=== PATIENT | female | born 1960 | race Caucasian/White ===

== ENCOUNTER 2018-11-16 12:08 | Inpatient (IN) | payer MEDICAID, OTHER ==
[~2018-11-16] VITALS: Ht 177.8 cm; Wt 65.8 kg
[~2018-11-16 12:08] MED LIST: ACET-1757 PO; LISI-466 PO; LISI40TA PO
[2018-11-16] MEDS ORDERED: SODIUM CHLORIDE FLUSH 10ML SYR IVF ONE (12:30)
[2018-11-16 12:50] LABS: BASOPHILS # (AUTO) 0.12 x10^3/uL (0-0.1); BASOPHILS % (AUTO) 1 % (0-1); EOSINOPHILS # (AUTO) 0.03 x10^3/uL (0-0.4); EOSINOPHILS % (AUTO) 0 % (1-7); LYMPHOCYTES % (AUTO) 30 % (22-44); MD NO; MEAN CORPUSCULAR HEMOGLOBIN 31.3 pg (27.0-34.8); MEAN CORPUSCULAR HGB CONC 33.6 g/dL (32.4-35.8); MEAN CORPUSCULAR VOLUME 93.1 fL (80-100); MEAN PLATELET VOLUME 8.9 fL (7.4-10.4); MONOCYTES # (AUTO) 0.62 x10^3/uL (0.2-0.8); MONOCYTES % (AUTO) 7 % (2-9); NEUTROPHILS # (AUTO) 5.62 x10^3/uL (1.8-6.8); NEUTROPHILS % (AUTO) 62 % (42-75); PLATELET COUNT 227 x10^3/uL (130-400); RED BLOOD COUNT 5.46 x10^6/uL (3.82-5.3); RED CELL DISTRIBUTION WIDTH 14.4 % (9.6-15.2)
[2018-11-16 12:59] LABS: ALBUMIN 4.2 g/dL (3.4-5.0); ANION GAP 9 mmol/L (5-15); CALCIUM 9.4 mg/dL (8.5-10.1); CHLORIDE 110 mmol/L (98-107)
[2018-11-16 13:04] LABS: CREATININE 0.77 mg/dL (0.55-1.02); TROPONIN I < 0.015 ng/mL (0.000-0.045)
--- NOTE | 2018-11-16 13:24 | NUR ---
PT RESTING ON GURNEY. PT STATES SHE IS UNABLE TO URINATE FOR SAMPLE. STATES SHE IS OK FOR STRAIGHT CATH IF NEEDED. WILL ADVISE MD. PALACIOS.
--- NOTE | 2018-11-16 13:50 | NUR ---
TASK RN: PT RESTING IN BED AT THIS TIME. UNABLE TO PROVIDE UA, PT REPORTS SHE IS STILL UNABLE TO PROVIDE UA AT THIS TIME.
[2018-11-16 14:57] LABS: MICROSCOPIC NOT IND
[2018-11-16 15:01] LABS: CULTURE INDICATED? NO
[2018-11-16] MEDS: NICOTINE 14MG/24 HR PATCH.TD24 TD SCH (16:30)
[2018-11-16] MEDS ORDERED: ONDANSETRON ODT 4 MG PO PRN (16:30)
[2018-11-16] MEDS ORDERED: ONDANSETRON 2MG/ML, 2ML IVPush PRN (16:30)
--- NOTE | 2018-11-16 16:50 | NUR ---
PT YELLING FOR HELP. THIS RN TO BEDSIDE. PT YELLING "I CAN'T BREATHE, I CAN'T BREATHE." PT STATES SHE HAS CHEST PRESSURE. STATES THIS JUST STARTED. EKG AT BEDSIDE COMPLETE. VSS. TELEPSYCH NEURO CONSULT. WILL UPDATE ADMITTING MD ON PT STATUS.
--- NOTE | 2018-11-16 17:35 | NUR ---
PT NOW CALM, VSS. DENIES ANY MORE CHEST PRESSURE AND SOB. RESTING ON GURNEY. PROVIDED WITH SNACK.
--- NOTE | 2018-11-16 19:07 | NUR ---
SBAR REPORT TO MELISSA SCHMIDT
--- NOTE | 2018-11-16 19:15 | NUR ---
PT RESTING WITH NO NEEDS AT THIS TIME. CALL LIGHT IN REACH
--- NOTE | 2018-11-16 20:15 | NUR ---
REPORT TO TARAH TORRES
[2018-11-16] MEDS: SODIUM CHLORIDE 0.9% 1,000 ML IV SCH (21:44)
[2018-11-16] MEDS: ENOXAPARIN 40 MG/0.4 ML SQ SCH (21:44)
[2018-11-16 21:52] VITALS: BP 122/80
[2018-11-16] MEDS: DIPHENHYDRAMINE 50 MG CAPSULE PO PRN (22:29)
[2018-11-17 03:50] VITALS: BP 126/77
[2018-11-17 05:34] LABS: ANION GAP 6 mmol/L (5-15); CALCIUM 9.2 mg/dL (8.5-10.1); CHLORIDE 111 mmol/L (98-107); CREATININE 1.06 mg/dL (0.55-1.02)
[2018-11-17 05:37] LABS: BASOPHILS # (AUTO) 0.03 x10^3/uL (0-0.1); BASOPHILS % (AUTO) 0 % (0-1); EOSINOPHILS % (AUTO) 0 % (1-7); LYMPHOCYTES # (AUTO) 1.31 x10^3/uL (1-3.4); LYMPHOCYTES % (AUTO) 16 % (22-44); MD NO; MEAN CORPUSCULAR HEMOGLOBIN 31.2 pg (27.0-34.8); MEAN CORPUSCULAR HGB CONC 33.3 g/dL (32.4-35.8); MEAN CORPUSCULAR VOLUME 93.7 fL (80-100); MONOCYTES # (AUTO) 0.03 x10^3/uL (0.2-0.8); MONOCYTES % (AUTO) 0 % (2-9); NEUTROPHILS # (AUTO) 6.94 x10^3/uL (1.8-6.8); NEUTROPHILS % (AUTO) 84 % (42-75); PLATELET COUNT 216 x10^3/uL (130-400); RED BLOOD COUNT 5.29 x10^6/uL (3.82-5.3); RED CELL DISTRIBUTION WIDTH 14.3 % (9.6-15.2)
[2018-11-17 07:09] VITALS: BP 120/62
[2018-11-17] MEDS: SODIUM CHLORIDE 0.9% 1,000 ML IV SCH (09:02)
[2018-11-17] MEDS: SENNA/DOCUSATE TABLET PO SCH (10:07)
[2018-11-17] MEDS ORDERED: LIDOCAINE-MPF 1%, 5ML ONE ×2 (12:07)
[2018-11-17 13:26] VITALS: BP 121/66
[2018-11-17 13:52] LABS: GLUCOSE, CSF 78 mg/dL (40-80); TOTAL PROTEIN,CSF 38 mg/dL (15-45)
[2018-11-17 15:43] LABS: % IRON SATURATION 30 % (20-55); IRON LEVEL 87 mcg/dL (50-170); TOTAL IRON BINDING CAPACITY 293 mcg/dL (250-450)
[2018-11-17] MEDS: NICOTINE 14MG/24 HR PATCH.TD24 TD SCH (16:30)
[2018-11-17] MEDS: ENOXAPARIN 40 MG/0.4 ML SQ SCH (17:30)
[2018-11-17 19:31] VITALS: BP 119/65
[2018-11-17] MEDS: DIPHENHYDRAMINE 50 MG CAPSULE PO PRN (20:15)
[2018-11-17] MEDS: ACETAMINOPHEN 325 MG TABLET PO PRN (20:19)
[2018-11-18] MEDS: SODIUM CHLORIDE 0.9% 1,000 ML IV SCH ×2 (04:51→22:40)
[2018-11-18 07:55] VITALS: BP 134/74
[2018-11-18] MEDS: SENNA/DOCUSATE TABLET PO SCH (08:00)
[2018-11-18] MEDS: ENOXAPARIN 40 MG/0.4 ML SQ SCH (08:01)
[2018-11-18] MEDS: BACLOFEN 10 MG TABLET PO SCH ×2 (13:04→21:02)
[2018-11-18] MEDS: ACETAMINOPHEN 325 MG TABLET PO PRN (13:05)
[2018-11-18 14:22] VITALS: BP 121/71
[2018-11-18] MEDS: NICOTINE 14MG/24 HR PATCH.TD24 TD SCH (16:30)
[2018-11-18 20:33] VITALS: BP 122/79
[2018-11-18] MEDS: DIPHENHYDRAMINE 50 MG CAPSULE PO PRN (21:07)
[2018-11-19 00:43] VITALS: BP 141/67
[2018-11-19 07:40] VITALS: BP 108/64
[2018-11-19] MEDS: ENOXAPARIN 40 MG/0.4 ML SQ SCH (08:48)
[2018-11-19] MEDS: SENNA/DOCUSATE TABLET PO SCH (08:48)
[2018-11-19] MEDS: BACLOFEN 10 MG TABLET PO SCH (08:48)
[2018-11-19 13:20] VITALS: BP 150/85
[2018-11-19] MEDS: SODIUM CHLORIDE 0.9% 1,000 ML IV SCH (15:41)
[2018-11-19 18:34] VITALS: BP 135/66
[2018-11-19] MEDS: MAGNESIUM HYDROXIDE 8%, 30ML UDC PO PRN (20:13)
[2018-11-20 01:06] VITALS: BP 161/79
[2018-11-20] MEDS ORDERED: BACLOFEN 10 MG TABLET PO STA (01:14)
[2018-11-20 07:18] VITALS: BP 141/72
[2018-11-20] MEDS: SODIUM CHLORIDE 0.9% 1,000 ML IV SCH (07:55)
[2018-11-20] MEDS: SENNA/DOCUSATE TABLET PO SCH (08:50)
[2018-11-20] MEDS: ENOXAPARIN 40 MG/0.4 ML SQ SCH (08:50)
[2018-11-20] MEDS: MAGNESIUM HYDROXIDE 8%, 30ML UDC PO PRN (10:58)
[2018-11-20 13:32] VITALS: BP 140/71
[2018-11-20] MEDS: BACLOFEN 10 MG TABLET PO PRN ×2 (13:45→23:24)
[2018-11-20 19:18] VITALS: BP 178/79
[2018-11-21] MEDS: SODIUM CHLORIDE 0.9% 1,000 ML IV SCH (00:40)
[2018-11-21 02:17] VITALS: BP 150/74
[2018-11-21 06:05] LABS: CREATININE 0.64 mg/dL (0.55-1.02)
[2018-11-21 06:44] VITALS: BP 151/79
[2018-11-21] MEDS: ENOXAPARIN 40 MG/0.4 ML SQ SCH (08:09)
[2018-11-21] MEDS: BACLOFEN 10 MG TABLET PO PRN (08:10)
[2018-11-21] MEDS: ISOSORBIDE DINITRATE 10 MG TABLET PO SCH ×3 (08:10→23:08)
[2018-11-21] MEDS: SENNA/DOCUSATE TABLET PO SCH (09:00)
[2018-11-21 13:55] VITALS: BP 151/83
[2018-11-21 14:00] VITALS: BP 160/83
[2018-11-21 21:07] VITALS: BP 122/69
[2018-11-21] MEDS: DIPHENHYDRAMINE 50 MG CAPSULE PO PRN (23:13)
[2018-11-22 02:42] VITALS: BP 124/74
[2018-11-22 07:36] VITALS: BP 128/78
[2018-11-22] MEDS: SENNA/DOCUSATE TABLET PO SCH (09:00)
[2018-11-22] MEDS: ISOSORBIDE DINITRATE 10 MG TABLET PO SCH ×3 (10:37→21:25)
[2018-11-22] MEDS: ENOXAPARIN 40 MG/0.4 ML SQ SCH (10:38)
[2018-11-22 13:59] VITALS: BP 113/72
[2018-11-22 19:12] VITALS: BP 128/82
[2018-11-22] MEDS: DIPHENHYDRAMINE 50 MG CAPSULE PO PRN (23:46)
[2018-11-23 02:15] VITALS: BP 121/75
[2018-11-23 07:47] VITALS: BP 118/76
[2018-11-23] MEDS: ENOXAPARIN 40 MG/0.4 ML SQ SCH (08:27)
[2018-11-23] MEDS: ISOSORBIDE DINITRATE 10 MG TABLET PO SCH ×3 (08:28→21:28)
[2018-11-23] MEDS: SENNA/DOCUSATE TABLET PO SCH (08:32)
[2018-11-23 13:06] VITALS: BP 109/67
[2018-11-23 19:00] VITALS: BP 104/65
[2018-11-24 03:55] VITALS: BP 119/69
[2018-11-24 07:27] VITALS: BP 124/62
[2018-11-24] MEDS: SENNA/DOCUSATE TABLET PO SCH (09:00)
[2018-11-24] MEDS: ENOXAPARIN 40 MG/0.4 ML SQ SCH (09:24)
[2018-11-24] MEDS: ISOSORBIDE DINITRATE 10 MG TABLET PO SCH ×3 (09:25→20:16)
[2018-11-24 14:47] VITALS: BP 152/97
[2018-11-24] MEDS ORDERED: ZOLPIDEM 5MG TABLET PO PRN (18:00)
[2018-11-24 19:52] VITALS: BP 162/105
[2018-11-25 01:27] VITALS: BP 107/66
[2018-11-25] MEDS: SENNA/DOCUSATE TABLET PO SCH (09:00)
[2018-11-25 09:46] VITALS: BP 146/83
[2018-11-25] MEDS: ENOXAPARIN 40 MG/0.4 ML SQ SCH (09:50)
[2018-11-25] MEDS: ISOSORBIDE DINITRATE 10 MG TABLET PO SCH (09:51)
[2018-11-25] MEDS ORDERED: ACET325T14 PO (13:14)
[2018-11-25] MEDS ORDERED: TRAZ-96 PO (13:14)
[2018-11-25] MEDS ORDERED: ISOS10TA2 PO (13:14)
[2018-11-25] MEDS ORDERED: HYDR-3341 PO (13:14)
== END 2018-11-25 14:25 | disposition home or self-care (01) | DRG 59 ==
LOC: ED 12:24 → EDIP 16:38 → 3NE 20:00 → DCLOUNGE 11-25 14:05
PROVIDERS: ADMIT Hospitalist; ATTEND Hospitalist
PROC: 009U3ZX Drainage of Spinal Canal, Percutaneous Approach, Diagnostic (ICD-10-PCS; principal; 2018-11-17)
PROC: B01B1ZZ Fluoroscopy of Spinal Cord using Low Osmolar Contrast (ICD-10-PCS; 2018-11-17)
DX: G35 Multiple sclerosis (principal); C94.00 Acute erythroid leukemia, not having achieved remission; G47.00 Insomnia, unspecified; G83.9 Paralytic syndrome, unspecified; I10 Essential (primary) hypertension; F17.210 Nicotine dependence, cigarettes, uncomplicated; I25.10 Atherosclerotic heart disease of native coronary artery without angina pectoris; J44.9 Chronic obstructive pulmonary disease, unspecified; M54.9 Dorsalgia, unspecified; K59.00 Constipation, unspecified; Z90.710 Acquired absence of both cervix and uterus; R29.810 Facial weakness; Z82.49 Family history of ischemic heart disease and other diseases of the circulatory system; Z88.8 Allergy status to other drugs, medicaments and biological substances; Z88.1 Allergy status to other antibiotic agents; Z79.899 Other long term (current) drug therapy; Z90.89 Acquired absence of other organs
CPT/HCPCS: 36415; 77003; 80048; 81003; 82040; 82042; 82565; 82784; 82945; 83540; 83550; 83873; 84155; 84157; 84165; 84166; 84484; 85025; 86592; 86645; 86695; 86696; 86762; 86777; 86778; 89051; 93005; 99285; G0378; J1650; J2930; J7030